=== PATIENT | female | born 1990 | race Caucasian/White ===

== ENCOUNTER 2025-03-04 14:33 | Emergency (ER) | payer OTHER, SELFPAY ==
--- OUTSIDE RECORDS SUMMARY | 2025-03-04 14:41 | XMS_ITS | Encounter Summary ---
Author Organization [facility] Address [address] [place] [address] Care Team Providers Care Business Coordinator Name Role Phone Quan Wade DO Primary Care Provider [phone] Reason for Referral * Imaging (Routine) - Closed Specialty Diagnoses / Procedures Referred By Farhat millan Referred To Contact RADIOLOGY Diagnoses Mass of left axilla Procedures US AXILLARY NON BREAST LT Quan Wade DO [address] [address] Phone: tel: fax: Referral ID Status Reason Start Date Expiration Date Visits Re quested Visits Authorized [id number] Closed 11/03/2024 12/04/2025 1 1 Reason for Visit * Reason Onset Date Comments Nodes 11/03/2024 Encounter Details Date Type Department Care Team (Late st Contact Info) Description 11/03/2024 [facility] Documentation [facility] [place], [place] [id number] Quan Wade DO [address] [address] Nodes Social History Tobacco Use Types Packs/Day Years Used Date Smoking Tobacco: Never Assessed Comments Unknown Sex and Gender Information Value Date Recorded Sex Assigned at Female 11/04/2024 11:33 AM CDT Legal Sex Female 9:43 AM CDT Gender Identity Not on file Sexual Orientation Not on file documented as of this encounter Progress Notes * Quan Wade DO - 11/03/2024 4:50 PM CDT Note completed for outpatient order placed to [facility] which is being followed outpatient. Ultrasound of left axillary region and mammogram to determine etiology of left axillary mass. Quan Wade DO Tie Carrier Cosigned by Tashi Bejarano MD at 11/21/2024 9:11 PM CDT documented in this encounter Plan of Treatment Not on file documented as of this encounter Results * CBC W/DIFF AUTOMATED (11/22/2024 3:29 PM CDT) WBC 8.13 4.5 - 11.0 x10'3/uL 11/22/2024 4:14 PM CDT [facility] RBC 4.88 4.20 - 5.40 x10'6/uL 11/22/2024 4:14 PM CDT [facility] HGB 15.1 12.0 - 16.0 G/DL 11/22/2024 4:14 PM CDT [facility] HCT 44.1 38.0 - 48.0 % 11/22/2024 4:14 PM CDT [facility] MCV 90.4 81.0 - 99.0 FL 11/22/2024 4:14 PM CDT [facility] MCH 30.9 27.0 - 31.0 PG 11/22/2024 4:14 PM CDT [facility] MCHC 34.2 32.0 - 36.0 G/DL 11/22/2024 4:14 PM CDT [facility] RDW 12.7 11.5 - 14.5 % 11/22/2024 4:14 PM CDT [facility] PLT 291 130 - 400 x10'3/uL 11/22/2024 4:14 PM CDT [facility] MPV 9.8 9.3 - 12.2 FL 11/22/2024 4:14 PM CDT [facility] DIFFERENTIAL TYPE AUTOMATED DIFFERENTIAL 11/22/2024 4:14 PM CDT [facility] NEUTROPHILS % 66.9 % 11/22/2024 4:14 PM CDT [facility] LYMPHOCYTES % 23.9 % 11/22/2024 4:14 PM CDT [facility] MONOCYTES % 6.5 % 11/22/2024 4:14 PM CDT [facility] EOSINOPHILS 1.2 % 11/22/2024 4:14 PM CDT [facility] BASOPHILS 1.0 % 11/22/2024 4:14 PM CDT [facility] IMMATURE GRANS % 0.5 % 11/23/19 4:14 PM CDT [facility] ABS. NEUTROPHILS 5.44 1.80 - 7.70 x10'3/uL 11/22/2024 4:14 PM CDT [facility] ABS. LYMPHOCYTES 1.94 1.00 - 4.80 x10'3/uL 11/22/2024 4:14 PM CDT [facility] ABS. MONOCYTES 0.53 0.24 - 0.86 x10'3/uL 11/22/2024 4:14 PM CDT [facility] ABS. EOSINOPHILS 0.10 0.04 - 0.36 x10'3/uL 11/22/2024 4:14 PM CDT [facility] ABS. BASOPHILS 0.08 0.01 - 0.08 x10'3/uL 11/22/2024 4:14 PM CDT [facility] ABS. IMMATURE GRANULOCYTES 0.04 0.00 - 0.49 x10'3/uL 11/22/2024 4:14 PM CDT [facility] 11/22/2024 3:29 PM CDT Quan Wade DO LABORATORY Final Result [facility] [address] [place] [address], [place] [phone] * US AXILLARY NON BREAST LT (11/22/2024 2:38 PM CDT) Anatomical Region Laterality Modality Extremity Ultrasound 11/22/2024 2:37 PM CDT Impressions 11/22/2024 2:39 PM CDT =====IMPRESSION:===== No mammographic evidence of malignancy.. Specifically no distinct abnormality in the left axilla, at level of possible abnormality.. If symptomatology persists, follow-up with surgical consultation. ASSESSMENT: ACR BI-RADS 1 - NEGATIVE Recommendation: 1: Routine Screening Bilateral COMMENTS: Ordered By: QUAN WADE Interpreted By: Adri Hackett, 11/22/2024 2:37 PM Narrative 11/22/2024 2:39 PM CDT [facility] [place] [address] EXAMINATION: Digital bilateral diagnostic mammogram with 3-D tomography. Left breast ultrasound [id number] EXAM DATE/TIME: 11/22/2024 1:03 PM REASON FOR EXAM: 2x2cm firm rubbery mass located in left axilla on distal aspect of tail of Elkins present for one month COMPARISON: Baseline exam TECHNIQUE: Digital diagnostic mammography of both breasts was performed in addition to 3-D Tomosynthesis technique. This study was read with the assistance of a computer-aided detection system.. Focused left breast ultrasound TISSUE DENSITY: There are scattered areas of fibroglandular density. Findings: No focal asymmetry, dominant mass lesion, area of skin thickening, or cluster of suspicious appearing calcifications in either breast to suggest malignancy.. Marker placed at level of palpable abnormality within the left axilla. No underlying abnormality on mammogram or same-day ultrasound. us Quan Wade DO ULTRASOUND Final Result * MG DIAG W ADELINE BILAT DIGI (11/22/2024 1:32 PM CDT) Anatomical Region Laterality Modality Breast Bilateral Mammography 11/22/2024 2:37 PM CDT Impressions 11/22/2024 2:39 PM CDT =====IMPRESSION:===== No mammographic evidence of malignancy.. Specifically no distinct abnormality in the left axilla, at level of possible abnormality.. If symptomatology persists, follow-up with surgical consultation. ASSESSMENT: ACR BI-RADS 1 - NEGATIVE Recommendation: 1: Routine Screening Bilateral COMMENTS: Ordered By: QUAN WADE Interpreted By: Adri Hackett, 11/22/2024 2:37 PM Narrative 11/22/2024 2:39 PM CDT [facility] [place] [address] EXAMINATION: Digital bilateral diagnostic mammogram with 3-D tomography. Left breast ultrasound [id number] EXAM DATE/TIME: 11/22/2024 1:03 PM REASON FOR EXAM: 2x2cm firm rubbery mass located in left axilla on distal aspect of tail of Elkins present for one month COMPARISON: Baseline exam TECHNIQUE: Digital diagnostic mammography of both breasts was performed in addition to 3-D Tomosynthesis technique. This study was read with the assistance of a computer-aided detection system.. Focused left breast ultrasound TISSUE DENSITY: There are scattered areas of fibroglandular density. Findings: No focal asymmetry, dominant mass lesion, area of skin thickening, or cluster of suspicious appearing calcifications in either breast to suggest malignancy.. Marker placed at level of palpable abnormality within the left axilla. No underlying abnormality on mammogram or same-day ultrasound. us Quan Wade DO MAMMO Final Result documented in this encounter Visit Diagnoses Diagnosis Mass of left axilla- Primary Axillary mass, left Axillary mass, left Mass of left axilla documented in this encounter Care Teams Business Coordinator Relationship Specialty Start Date End Date Quan Wade, [address] [address] PCP - General FAMILY PRACTICE 11/06/24 documented as of this encounter
--- OUTSIDE RECORDS SUMMARY | 2025-03-04 14:41 | XMS_ITS | Clinical Summary ---
Author Organization [facility] Address [address] [place] [address] Care Team Providers Care Exec. Creative Director Name Role Phone NickQuan lay Martha GARIBAY Primary Care Provider [phone] Social History Tobacco Use Types Packs/Day Years Used Date Smoking Tobacco: Never Assessed Comments Unknown Sex and Gender Information Value Date Recorded Sex Assigned at Female 11/04/2024 11:33 AM CDT Legal Sex Female 9:43 AM CDT Gender Identity Not on file Sexual Orientation Not on file Plan of Treatment Health Maintenance Due Date Last Done Comments Cervical Cancer Screening Pa p Smear (Age 30 to 64) Every 3 Years 1988 Annual Physical 1991 Hepatitis C 2006 Hepatitis B Vaccines (1 of 3 - 19+ 3-dose series) 2007 HPV Vaccines (1 - 3-dose SCD M series) 2015 Cervical Cancer Screening Pa p with HPV Testing (Age 30 to 64) Every 5 Years 2018 Cervical Cancer Screening with HPV 2018 COVID-19 Vaccine ( - 2023-2 5 season) 2024 DTaP, Tdap and Td Vaccines ( 2 - Td or Tdap) 03/12/2028 03/12/2018 Meningococcal B Vaccine Aged Out No l onger eligible based on patient's age to complete this topic Meningococcal Vaccine Aged Out No pavan zelalem eligible based on patient's age to complete this topic Pneumococcal Vaccine: Pediat rics (0 to 5 Years) and At-Risk Patients (6 to 49 Years) Aged Out No longer eligi ble based on patient's age to complete this topic RSV Immunizations Under 20 Months Aged Out No longer eligible based on patient's age to complete this topic Insurance Care Teams Exec. Creative Director Relationship Specialty Start Date End Date Quan Wade DO [address] [address] PCP - General FAMILY PRACTICE 11/06/24
--- OUTSIDE RECORDS SUMMARY | 2025-03-04 14:41 | XMS_ITS | Continuity of Care Document ---
Author Organization [employer] Address [address] [address] [place] [address] Phone Care Team Providers Care Direct Chill Caster Name Role Phone Settle Radha DELCID Unavailable Unavailable Allergies, Adverse Reactions, Alerts Substance Reaction Status Criticality No Known Allergies Active No Inform ation Medications Medication Instructions Dosage Effective Dates (start - stop) Status Comments Ortho Micronor 0.35 mg tablet take 1 tablet by oral route every day - Active breast pump AC/DC ANY; USE DIRECTED; DIAGNOSIS Z39.1 - Active triamcinolone acetonide 0.1 % topical cream apply sparingly to affect area 2 times every day in a thin layer for atopic dermatitis - Active Vitamin 27 mg iron-0.8 mg tablet take 1 tablet by oral route every day 1 tablet - No Longer Active Procedures Procedure Date Post Visit DELIVERY Global Urinalysis OB GLOBAL ROUTINE VENIPUNCTURE Global Urinalysis OB GLOBAL Global Urinalysis OB GLOBAL NON-STRESS TEST Global Urinalysis OB GLOBAL Global Urinalysis OB GLOBAL IMMUNIZATION ADMIN TDAP VACCINE >7 IM Global Urinalysis OB GLOBAL Global Urinalysis OB GLOBAL Global Urinalysis OB GLOBAL Global Urinalysis New OB Visit OFFICE/OUTPATIENT VISIT/TELEHEALTH, EST OFFICE/OUTPATIENT VISIT/TELEHEALTH, EST PREV VISIT, EST, AGE 18-39 OFFICE/OUTPATIENT VISIT/TELEHEALTH, EST PREV VISIT, EST, AGE 18-39 POSTOP FOLLOW-UP VISIT RPR VENTRAL DEON INIT, REDUC OB GLOBAL OFFICE/OUTPATIENT VISIT/TELEHEALTH, EST Delivering Physician For Vaginal Deliver y Care But Delivered By Another D r OB GLOBAL IMMUNIZATION ADMIN TDAP VACCINE >7 IM Global Urinalysis OB GLOBAL Global Urinalysis OB GLOBAL Global Urinalysis OB GLOBAL ROUTINE VENIPUNCTURE Global Urinalysis OB GLOBAL ROUTINE VENIPUNCTURE OFFICE CONSULTATION NON-STRESS TEST Global Urinalysis OB GLOBAL OB GLOBAL Global Urinalysis ROUTINE VENIPUNCTURE OB GLOBAL Global Urinalysis ROUTINE VENIPUNCTURE IMMUNIZATION ADMIN IIV4 VACC NO PRSV 0.5 ML IM Global Urinalysis ROUTINE VENIPUNCTURE OB GLOBAL OFFICE/OUTPATIENT/TELEHEALTH VISIT, NEW Advance Directives Directive Yes / No Effective Date File Name No Information Encounters Encounter Description Practice Location Reason(s) For Visit Diagnoses Date Provider Providers Copied on Encounter [facility], [address] [address], [place], [place], [address], [place] tel:[phone] [facility] Demond 204 check (chief complaint) Encounter for routine follow-upSki marisa lesion 3 Justin Garcia. [address], [address], [place], [address], [place]. tel:[phone] Referring Provider: Maricruz Clemente, [address], [place], [address] . tel:[phone] [facility], [address] [address], [place], [place], [address], [place] tel:[phone] [facility] Inpatient No Information 3 Justin Garcia. [address], [address], [place], [address], [place]. tel:[phone] Referring Provider: Radha Kelley, [address], [place], [address] . tel:[phone] [facility], [address] [address], [place], [place], [address], [place] tel:[phone] [facility] 204 (chief complaint) Abnormal antibody titerEncount er for supervision of other normal , third blzpbikiz12 weeks gestation of pregnancyGBS (group B Streptococcu s carrier), +RV culture, currently 3 Justin Garcia. [address], [address], [place], [address], [place]. tel:[phone] Referring Provider: Radha Kelley, [address], [place], [address] . tel:[phone] [facility], [address] [address], [place], [place], [address], [place] tel:[phone] [facility] [place] 203 (chief complaint) Encounter for supervision of other normal , third cqphgyqao35 weeks gestation of 3 Joshua Mcqueen. [address], [address], [place], [id number], [place]. tel:[phone] Referring Provider: Radha Kelley, [address], [place], [address] . tel:[phone] [facility], [address] [address], [place], [place], [address], [place] tel:[phone] [facility] [place] 203 (chief complaint) Encounter for supervision of other normal , third trimester 3 Dagmar Fonseca. [address], [address], [place], [address], [place]. tel:[phone] Referring Provider: Radha Kelley, [address], [place], [address] . tel:[phone] [facility], [address] [address], [place], [place], [address], [place] tel:[phone] [facility] Outpatient No Information 3 Justin Garcia. [address], [address], [place], [address], [place]. tel:[phone] Referring Provider: Radha Kelley, [address], [place], [address] . tel:[phone] [facility], [address] [address], [place], [place], [address], [place] tel:[phone] [facility] [place] 203 (chief complaint) Encounter for supervision of other normal , third weeks gestation of 3 Bryn Alcnatara. [address], [address], [place], [address], [place]. tel:[phone] Referring Provider: Radha Kelley, [address], [place], [address] . tel:[phone] [facility], [address] [address], [place], [place], [address], [place] tel:[phone] [facility] 204 (chief complaint) Encounter for supervision of other normal , third trimesterAbn ormal antibody titer28 weeks gestation of 3 Justin Garcia. [address], [address], [place], [address], [place]. tel:[phone] Referring Provider: Radha Kelley, [address], [place], [address] . tel:[phone] [facility], [address] [address], [place], [place], [address], [place] tel:[phone] [facility] 204 (chief complaint) Encounter for supervision of other normal , second bxmzorbhw01 weeks gestation of pregnancyAbn ormal antibody titer 3 Justin Garcia. [address], [address], [place], [address], [place]. tel:[phone] Referring Provider: Radha Kelley, [address], [place], [address] . tel:[phone] [facility], [address] [address], [place], [place], [address], [place] tel:[phone] [facility] 204 (chief complaint) Encounter for supervision of other normal , second btluuzlom06 weeks gestation of pregnancyAbn ormal antibody titerHistory of delivery, currently 3 Justin Garcia. [address], [address], [place], [address], [place]. tel:[phone] Referring Provider: Radha Kelley, [address], [place], [address] . tel:[phone] [facility], [address] [address], [place], [place], [address], [place] tel:[phone] [facility] [place] 204 (chief complaint) Encounter for supervision of other normal , second wxgzuhevo00 weeks gestation of pregnancyAbn ormal antibody titer 3 Justin Garcia. [address], [address], [place], [address], [place]. tel:[phone] Referring Provider: Radha Kelley, [address], [place], [address] . tel:[phone] [facility], [address] [address], [place], [place], [address], [place] tel:[phone] [facility] [place] 204 Obesity during 3 Justin Garcia. [address], [address], [place], [address], [place]. tel:[phone] [facility], [address] [address], [place], [place], [address], [place] tel:[phone] [facility] [place] 204 (chief complaint) Encounter for supervision of other normal , first weeks gestation of pregnancyObe sity during pregnancyPre vious sectionHisto ry of delivery, currently 2 Justin Garcia. [address], [address], [place], [address], [place]. tel:[phone] Referring Provider: Radha Kelley, [address], [place], [address] . tel:[phone] OFFICE/OUTPAT IENT VISIT/[facility], EST [facility], [address] [address], [place], [place], [address], [place] tel:[phone] [facility] [place] 204 amenorrhea (chief complaint) Amenorrhea 2 Justin Garcia. [address], [address], [place], [address], [place]. tel:[phone] Referring Provider: Radha Kelley, [address], [place], [address] . tel:[phone] [facility], [address] [address], [place], [place], [address], [place] tel:[phone] [facility] [place] , unspecified gestational age 2 Cris Poon. [address], [place], [address], [place]. tel:[phone] OFFICE/OUTPAT IENT VISIT/TE[facility]HEA [facility], EST [facility], [address] [address], [place], [place], [address], [place] tel:[phone] [facility] Vy Colon c/o (R) arm numbness and tingling (chief complaint) Bilateral carpal tunnel syndrome 2 Cris Poon. [address], [place], [address], [place]. tel:[phone] Referring Provider: Ayah Sabillon, [address], [place], [address]. tel:[phone] PREV VISIT, EST, AGE 18-39 [facility], [address] [address], [place], [place], [address], [place] tel:[phone] [facility] Colon [place] 203 annual exam (chief complaint) Encntr for patient intake coordinator exam (general) (routine) w/o abn findingsPers onal hx of contraceptio n 2 Korin Morillo. [address], [address], [place], [address], [place]. tel:[phone] Referring Provider: Bonita Portillo, [address], [place], [address]. tel:[phone] OFFICE/OUTPAT IENT VISIT/TELEHEA LTH, EST [facility], [address] [address], [place], [place], [address], [place] tel:[phone] [facility] Vy Colon c/o rash (chief complaint)c /o lump on upper back (chief complaint)c /o earache (chief complaint) Atopic dermatitis, mildEpiderma l inclusion cystEar pain, bilateral Oct- 2 Cris Poon. [address], [place], [address], [place]. tel:[phone] Referring Provider: Ayah Sabillon, [address], [place], [address]. tel:[phone] PREV VISIT, EST, AGE 18-39 [facility], [address] [address], [place], [place], [address], [place] tel:[phone] [facility] [place] 203 annual exam (chief complaint) Women's annual routine gynecologica l examinationE ncounter for surveillance of contraceptiv e pills 1 Cj Mesa. [address], [address], [place], [address], [place]. tel:[phone] Referring Provider: Bonita Portillo, [address], [place], [address]. tel:[phone] [facility], [address] [address], [place], [place], [address], [place] tel:[phone] [facility] Post-Op (chief complaint) Follow-up surgery care Oct-0 1 Ac Sin. [address], [address], [place], [address], [place]. tel:[phone] Referring Provider: Merrick Shen, [address], [place], [address]. tel:[phone] [facility], [address] [address], [place], [place], [address], [place] tel:[phone] [facility] OR No Information 1 Ac Sin. [address], [address], [place], [address], [place]. tel:[phone] Referring Provider: Merrick Shen, [address], [place], [address]. tel:[phone] [facility], [address] [address], [place], [place], [address], [place] tel:[phone] [facility] Pre-op testing 1 Cris Poon. [address], [place], [address], [place]. tel:[phone] [facility], [address] [address], [place], [place], [address], [place] tel:[phone] [facility] Dem[place] 203 check (chief complaint) Encounter for routine follow-upBir th control counseling 1 Cj Mesa. [address], [address], [place], [address], [place]. tel:[phone] Referring Provider: Bonita Portillo, [address], [place], [address]. tel:[phone] OFFICE/OUTPAT IENT VISIT/TELEHEA LT, EST [facility], [address] [address], [place], [place], [address], [place] tel:[phone] [facility] Ventral hernia (chief complaint) Ventral hernia without obstruction or gangreneMoth er currently breast-feedi ng 1 Ac Sin. [address], [address], [place], [address], [place]. tel:[phone] Referring Provider: Merrick Shen, [address], [place], [address]. tel:[phone] [facility], [address] [address], [place], [place], [address], [place] tel:[phone] [facility] Inpatient No Information 1 Korin Morillo. [address], [address], [place], [address], [place]. tel:[phone] Referring Provider: Bonita Portillo, [address], [place], [address]. tel:[phone] [facility], [address] [address], [place], [place], [address], [place] tel:[phone] [facility] Inpatient No Information 1 Cj Mesa. [address], [address], [place], [address], [place]. tel:[phone] Referring Provider: Bonita Portillo, [address] [place] [address] Road [address], [place], [address]. tel:[phone] [facility], [address] [address], [place], [place], [address], [place] tel:[phone] [facility] [place] 203 (chief complaint) 35 weeks gestation of 1 Justin Radha. [address], [address], [place], [address], [place]. tel:[phone] Referring Provider: Bonita Portillo, [address] [place] [address] Road [address], [place], [address]. tel:[phone] [facility], [address] [address], [place], [place], [address], [place] tel:[phone] [facility] [place] 203 (chief complaint) Supervision of high risk , third weeks gestation of 1 Cj Mesa. [address] [place] [address] Road, [address], [place], [address], [place]. tel:[phone] Referring Provider: Bonita Portillo, [address] [place] [address] Road [address], [place], [address]. tel:[phone] [facility], [address] [address], [place], [place], [address], [place] tel:[phone] [facility] [place] 203 (chief complaint) Encounter for supervision of other normal , third weeks gestation of pregnancyKid celeste stones 0 Cj Mesa. [address], [address], [place], [address], [place]. tel:[phone] Referring Provider: Bonita Portillo, [address], [place], [address]. tel:[phone] [facility], [address] [address], [place], [place], [address], [place] tel:[phone] [facility] [place] 203 (chief complaint) Supervision of high risk , third kexqldvdi02 weeks gestation of 0 Cj Mesa. [address], [address], [place], [address], [place]. tel:[phone] Referring Provider: Bonita Portillo, [address], [place], [address]. tel:[phone] [facility], [address] [address], [place], [place], [address], [place] tel:[phone] [facility] [place] 203 (chief complaint) Supervision of high risk , 2nd iltaptobh81 weeks gestation of pregnancyKid celeste stones 0 Cj Mesa. [address], [address], [place], [address], [place]. tel:[phone] Referring Provider: Bonita Portillo, [address], [place], [address]. tel:[phone] [facility], [address] [address], [place], [place], [address], [place] tel:[phone] [facility] [place] Kidney stones 0 Cris Poon. [address], [place], [address], [place]. tel:[phone] OFFICE CONSULTATION [facility], [address] [address], [place], [place], [address], [place] tel:[phone] [facility] umbilical hernia (chief complaint) Ventral hernia without obstruction or drdalwta00 weeks gestation of 0 Ac Nigelmeño. [address], [address], [place], [address], [place]. tel:[phone] Referring Provider: Bonita Portillo, [address], [place], [address]. tel:[phone] [facility], [address] [address], [place], [place], [address], [place] tel:[phone] [facility] Outpatient No Information 0 Bryn Alcantara. [address], [address], [place], [address], [place]. tel:[phone] Referring Provider: Bonita Portillo, [address], [place], [address]. tel:[phone] [facility], [address] [address], [place], [place], [address], [place] tel:[phone] [facility] [place] 203 (chief complaint) Supervision of high risk , 2nd dngvuzwri65 weeks gestation of 0 Cj Mesa. [address], [address], [place], [address], [place]. tel:[phone] Referring Provider: Bonita Portillo, [address], [place], [address]. tel:[phone] [facility], [address] [address], [place], [place], [address], [place] tel:[phone] [facility] Umbilical hernia without obstruction or gangrene 0 Cris Poon. [address] [place] [address] Rd [address], [place], [address], [place]. tel:[phone] [facility], [address] [address], [place], [place], [address], [place] tel:[phone] [facility] 203 (chief complaint) Supervision of high risk , 2nd bfegncfkm29 weeks gestation of Apr- 0 Cj Whittingtonjita. [address] [place] [address] Road, [address], [place], [address], [place]. tel:[phone] Referring Provider: Bonita Portillo, [facility] [address], [place], [address]. tel:[phone] [facility], [address] [address], [place], [place], [address], [place] tel:[phone] [facility] (chief complaint) Supervision of high risk , 2nd pwrlosfwn60 weeks gestation of Mar- 0 Nikhilveronica Bonita. [address] [place] [address] Road, [address], [place], [address], [place]. tel:[phone] Referring Provider: Bonita Portillo, [address] [place] [address] Road [address], [place], [address]. tel:[phone] [facility], [address] [address], [place], [place], [address], [place] tel:[phone] [facility] (chief complaint) Supervision of high risk , 2nd weeks gestation of Mar-0 0 Nikhilata Bonita. [address] [place] [address] Road, [address], [place], [address], [place]. tel:[phone] Referring Provider: Bonita Portillo, [facility] [address], [place], [address]. tel:[phone] OFFICE/OUTPAT IENT/TELEHEAL TH VISIT, [facility], [address] [address], [place], [place], [address], [place] tel:[phone] [facility] Telehealth [place] [facility] (chief complaint)e [facility] (chief complaint) Amenorrhea 0 Cris Poon. [address], [place], [address], [place]. tel:[phone] Referring Provider: Ayah Sabillon, [address], [place], [address]. tel:[phone] Family History Family Member Type Diagnosis Age At Onset Father Problem (finding) hypercholesterolemia Paternal grandmother Problem (finding) stroke Sister Problem (finding) asthma Maternal grandmother Problem (finding) Heart disease Paternal grandfather Problem (finding) alzheimer's dis ease Father Problem (finding) hypertension Immunizations Vaccine Date Status Comments Tdap administered Source: New Imm unization Record Tdap administered Source: New Imm unization Record Influenza Virus Vaccine, Preservative free administered Source: New Immuniza tion Record Payers Payer name Insurance type Covered democrat ID Authoriza tion(s) [employer] [id number] [employer] [id number] [employer] [id number] [employer] [id number] Social History Type Description Quantity Date Captured Comments Alcohol Use Details Unknown Caffeine Use Details Unknown Tobacco Use Status No Information Smoking Status No Information Sex Female Vital Signs Date / Time: Height Weight BMI Pulse Rate Blood Pressure Temperature Respiratory Rate Body Surface Area Head Circumference Head Circ. Percentile Wt./Anthony. Percentile BMI percentile Pulse Ox Inhaled Ox 3:30 PM 67.00 in 100.471 kg (221.50 lbs) 34.6 9 kg/m eter (2) 120/76 mm[Hg] Chief Complaint And Reason For Visit From encounter dated '02/04/2023 15:15'. check (chief complaint). Description: The patient has no feeding complications, nursing difficulties, breast problems, vaginal bleeding, urinary problems or bowel problems. A depression screening was completed. The patient has no history of domestic violence. The patient has resumed sexual activity and exercise. The patient has not resumed work. Reason For Referral Reason For Referral No Information Plan Of Treatment Date Type Action Status Referral Ordered: Dermatology (related to Skin lesion) ordered Referral Referred To: [address] [place] [address] [place], [phone] Ordered: Referrals: Dermatology. Location: [facility] ordered Referral Ordered: Fabiola Munroe MD -Obstetrics (related to History of delivery, currently ) ordered Referral Referred To: Fabiola Munroe MD [address] [facility]
[address] [place], [phone] Ordered: Referrals: Obstetrics. Fabiola Munroe MD ordered Referral Ordered: TRANSVAGINAL US, OBSTETRIC ordered Referral Referred To: Radha Anderson MD [address] [place], [phone] Ordered: Referrals: Obstetrics and Gynecology. Radha Anderson MD Evaluate and treat ordered Referral Ordered: Beau Willams MD -Physical Medicine and Rehabilitation (related to Bilateral carpal tunnel syndrome) ordered Referral Ordered: Isaak Murray MD -Orthopedic Surgery (related to Bilateral carpal tunnel syndrome) ordered Referral Referred To: Isaak Murray MD [address] [place], [id number] Ordered: Referrals: Orthopedic Surgery. Isaak Murray MD. Evaluate and treat ordered Referral Referred To: Beau Willams MD [address] [place], [phone] Ordered: Referrals: Physical Medicine and Rehabilitation. Beau Willams MD. Evaluate and treat ordered Referral Referred To: Merrick Shen MD [address] [place], [phone] Ordered: Referrals: Surgery. Merrick Shen MD. Evaluate and treat ordered Referral Ordered: Guy Espana MD -Urology (related to Kidney stones) ordered Referral Referred To: [address] [place], [phone] Ordered: Ultrasound, Retroperitoneal (Kidney And Bladder) Limited ordered Referral Referred To: Guy Espana MD [address] [place], [phone] Ordered: Referrals: Urology. Guy Espana MD. Evaluate and treat ordered Referral Ordered: Merrick Shen MD -Surgery (related to Umbilical hernia without obstruction or gangrene) ordered Referral Referred To: Merrick Shen MD [address] [place], [phone] Ordered: Referrals: Surgery. Merrick Shen MD. Evaluate and treat ordered Referral Referred To: [address] [place], [address] [phone] Ordered: OB US, DETAILED, SNGL FETUS ordered Referral Ordered: Bonita Corona MD [facility] -Obstetrics (related to Amenorrhea) ordered Referral Referred To: Bonita Corona MD [facility] [address] [place], [address] [phone] Ordered: Referrals: . Bonita Corona MD [facility]. Evaluate and treat ordered History Of Present Illness Encounter Date Complaint History Of Prese nt Illness check The patient has no feeding complications, nursing difficulties, breast problems, vaginal bleeding, urinary problems or bowel problems. A depression screening was completed. The patient has no history of domestic violence. The patient has resumed sexual activity and exercise. The patient has not resumed work. LMP was 04/17/20 22. The patient had 5 previous pregnancies. LMP was 04/17/20 22. The patient had 5 previous pregnancies. LMP was 04/17/20 22. The patient had 5 previous pregnancies. LMP was 09/28/20 22. The patient had 5 previous pregnancies. LMP was 04/17/20. The patient had 5 previous pregnancies. amenorrhea Last menstrual p eriod was on 04/17/2022. The age of menarche onset was 11. Patient is . : 6. Parity: Term: 3. Pre-Term: 1. : 1. Livin. c/o (R) arm numbness and tinglin g Was staying in parent's guestroom after driving long distance, she woke up with numbness in the right hand affecting all fingers, it did not get better as soon as she got up. It took some time to resolve and later in the day she would have repeated brief episodes of numbness/tingling. This problem has continued since. It was noticed while driving home. At this point she has been experiencing numbness just in the median nerve distribution. She occ has had numbness int he left hand also. annual exam Currently pregna nt: no. : 5. Parity: Term: 3. Pre-Term: 1. spontaneous: 1. Livin. The patient states she uses oral contraceptive for control. Her menses is regular. Negative for: breast self exam. Pertinent negatives include abnormal vaginal bleeding. She does not take multivitamins. She has not been exposed to passive smoke. She has not been exposed to passive vaping. She does drink alcohol. Additional information: pt presents for annual exam. Needing pap. Wanting to continue OCP . c/o rash itchy, to extens or surfaces elbows and knees x 6 mos, and ankles too sometimes. has been applying lotion which seems to help initially, not much benefit from cortisone cream, dad has similar rash and TAC helps it. c/o lump on upper back lump on t he mid upper back, it does not hurt, except once when she tried squeezing it. c/o earache x 2 years, can a ffect either ear, happens when she lies on the one side or the other, the side she lies on is sore when she wakes up and it can also be sore and cause her to wake up and rollover. If she just sleeps on the back it does not hurt. No hearing trouble, no dizziness, no discharge from the ear. Pain lasts about 30 min when she wakes up in the am, she never takes anything for it. annual exam Currently pregna nt: no. : 5. Parity: Term: 3. Pre-Term: 1. spontaneous: 1. Livin. The patient states she uses oral contraceptive for control. Negative for: breast discharge, breast lump(s) and breast pain. Positive for: breast self exam. Pertinent negatives include abnormal bleeding (hematology), abnormal vaginal bleeding, anxiety, decreased libido, depression, difficulty falling sleep, dyspareunia, history of infertility, nocturia, sexual dysfunction, sleep disturbances, urinary incontinence, urinary urgency, vaginal discharge and vaginal itching. The patient does not use tobacco. She has not been exposed to passive smoke. She has not been exposed to passive vaping. She does drink alcohol. Additional information: 30-year-old white female 5 para 3-1-1-4 presented for annual checkup denied any problem patient had a Pap smear done on March 28, 2020 currently breast-feeding on minipill. Patient would be trying to get once she finishes breast-feeding. Post-Op The status of th e patient has improved. The patient reports pain. The pain scale is 0/10. The patient is not using pain medication. The patient reports no complications with the wound. The patient's activity level is back to pre-operative level. There are no indwelling devices. There are no associated symptoms. Pertinent negatives include abdominal pain, anorexia, calf tenderness, chest pain, chills, constipation, cough, diarrhea, dysphagia, dyspnea, fever, hematoma, hoarseness, limping, nausea, pleuritic pain, referred pain, swelling, urinary difficulty, vomiting and weight loss. Additional information: Patient is status post primary repair of a reducible ventral hernia on 10/09/2020. check The patient has no feeding complications, nursing difficulties, breast problems, vaginal bleeding, urinary problems or bowel problems. The patient has no feeding complications, nursing difficulties, breast problems, vaginal bleeding, urinary problems or bowel problems. A depression screening was completed. The patient has no history of domestic violence or gestational diabetes. The patient has not resumed sexual activity, work or exercise. The patient has not resumed sexual activity, work or exercise. The patient has no section incisional drainage, section incisional pain or episiotomy/laceration pain. The patient has no section incisional drainage, section incisional pain or episiotomy/laceration pain. Additional Information: Patient status post vaginal delivery 6 weeks ago is here for checkup denied any problems bleeding has stopped patient would like to do Micronor for control. Discussed delivery patient delivered at 35-1/2 weeks will require progesterone injections next . Ventral hernia Duration: 5 Year s. Severity: moderate. The problem is worse. It occurs constantly., periumbilical There is radiation to lower abdomen and epigastric. The patient describes it as aching. Context includes lifting heavy weight and physical activity. Identified risk factors include heavy lifting, multiple pregnancies, overweight, and previous abdominal surgery. Symptom is aggravated by lifting weight. Relieving factors include lying down. There are no associated symptoms. Pertinent negatives include abdominal distention, anorexia, back pain, bloating, blood in stool, constipation, cough, diaphoresis, diarrhea, dizziness, dyspnea, epigastric pain, eructation, fatigue, fever, flank pain, flatulence, heartburn, hematuria, jaundice, lightheadedness, menstruation, milk/dairy intolerance, myalgia, nausea, post prandial fullness, reflux, scrotal swelling, vomiting, weight gain and weight loss. Additional information: She is in the office today to schedule surgery.. LMP was 12/12/19 20. Severity: high risk. The patient had 4 previous pregnancies. LMP was 12/12/19 20. Severity: high risk. The patient had 4 previous pregnancies. Additional information: Pt doing well. LMP was 05 20. Severity: high risk. The patient had 4 previous pregnancies. LMP was 12/12/19 20. Severity: high risk. The patient had 4 previous pregnancies. Additional information: Pt doing well without any issues. LMP was 12/12/19 20. Severity: high risk. The patient had 4 previous pregnancies. Additional information: Pt doing well, still having back pain. umbilical hernia Duration: 5 Yea rs. Severity: moderate. The problem is worse. It occurs constantly., periumbilical There is radiation to lower abdomen and epigastric. The patient describes it as aching. Context includes lifting heavy weight and physical activity. Identified risk factors include heavy lifting, multiple pregnancies, and previous abdominal surgery. Symptom is aggravated by lifting weight. Relieving factors include lying down. There are no associated symptoms. Pertinent negatives include abdominal distention, anorexia, back pain, bloating, blood in stool, constipation, cough, diaphoresis, diarrhea, dizziness, dyspnea, epigastric pain, eructation, fatigue, fever, flank pain, flatulence, heartburn, hematuria, jaundice, lightheadedness, menstruation, milk/dairy intolerance, myalgia, nausea, post prandial fullness, reflux, scrotal swelling, vomiting, weight gain and weight loss. Additional information: She has had a tender bulge above her belly button since her first . She is currently and due in Aug 2020.. LMP was 12/12/19 20. Severity: high risk. The patient had 4 previous pregnancies. Associated symptoms include pelvic pain, urinary difficulty. LMP was 12/12/19 20. Severity: high risk. The patient had 4 previous pregnancies. Additional information: Pt doing well, having some back pain. LMP was 12/12/19 20. Severity: high risk. The client had 4 previous pregnancies. Additional information: Pt doing well without any issues. AFP drawn today. LMP was 12/12/19 20. LMP date is approximate. LMP date is unknown. Client was not taking control pills at or around the time of her LMP. Severity: high risk. Context: confirmed by lab test on 02/10/2020. Lab: [facility]. The client had 4 previous pregnancies. Symptoms were relieved by antacids. Associated symptoms include breast tenderness, fatigue, nausea. Pertinent negatives include anorexia, bleeding, constipation, edema, fever, headache, heartburn, irritability, pelvic pain, spotting, urinary difficulty, vaginal discharge, vomiting. Additional information: Transfer pt from [facility], 5th with history of complicated deliveries. History of anti little c. Telehealth with consent establish care patient has no c oncerns LMP December 11. she is taking pnv and no alcohol consumption. Kids are 5,3, 19 mos Functional Status Date Functional Assessmen t No Information Instructions Date Instruction Additional Infor mation R>>Luse wrist splint s at nightrefer for ncs emgrefer to Dr Parks Related to Bilateral carpal tunnel syndrome consider ENT referra l if problem becomes increasingly bothersome Related to Ear pain, bilateral refer to Dr. Shen. Related to Epidermal inclusion cyst basis of treatment i s moisturizers - eucerin, aquaphor and cetaphil - generics ok too, preferably from a tub, not a pump bottletriamcinolone cream apply sparingly, up to 2 times per day when area if inflamed and itchy, Related to Atopic dermatitis, mild circumcision depression postterm counseling TOLAC/ counseling anesthesia / analgesia plans toxoplasmosis precau tions (cats / raw meat) travel indications for ultrasound nutrition and weight gain counseling, special diet sexual activity exercise anticipated course of c are Benefits of Pamphl et (WB) risk factors identif ied by history HIV and other routine t ests Breast Changes during (WB) Discuss Flu vaccine and T-Dap Va ccine abnormal lab values signs and symptoms of la bor Screening for Aneuploidy Avoidance of hot tubs or saunas Dental care domestic violence childbirth classes / hospital fa cilities seat belt use influenza vaccine use of any medicatio ns (including supplements, vitamins, herbs, OTC drugs) use of illicit / recreational dr marshall Tobacco & Alcohol (ask/advise/assess/assist and arrange) environmental / work hazards & T eratogens Speak Up Pamphlet sk in to skin and (WB) domestic violence selecting a care provide r family medical leave or disabili ty forms smoking counseling influenza vaccine signs and symptoms o f -induced hypertension breast or formula feeding labor signs movement monitoring Encourage breast fee ding support group (WB) Give Nurturing Necessities Info (WB) If indicated discuss contraindications for (WB) Importance of Exclus tere for the first 6 months (WB) By week 31 Review Fe eding Solid Foods to your Baby (WB) Contact [facility] using number on the form given (WB) Encourage Childbirth & Breastfeeing Classes (WB) Non-Pharmalogical pa in relief for labor (WB) Hunger signs/The first 6 months (WB) Importance of 24 zara r baby rooming in (WB) know how Pamphlet (WB) Depression Screening (when indic ated) family pl anning / tubal sterilization domestic violence smoking counseling education (n ewborn screening, jaundice, SIDS, car seat) refer to OB Related to Ameno rrhea Assessments Type Assessment Date assessment Encounter for routine follow-up assessment Skin lesion Patient Care Teams Name Effective Dates (start - stop) Status Members No Information
--- NOTE | 2025-03-04 14:42 | ED_ITS ---
HPI - URI/Sore Throat General Chief Complaint: Upper Respiratory Infection Stated Complaint: sore throat/congestion Time Seen by Provider: 03/04/25 14:59 History of Present Illness HPI Narrative: 34 y/o female presented for c/o sore throat. Onset 4 days. Started with hoarse voice, right ear pain, nasal congestion and headache since onset. Taking Motrin. Denies n/v/d/f/c. Related Data Home Medications ?Medication ?Instructions ?Recorded ?Confirmed ?Last Taken ?Type norethindrone (contraceptive) 0.35 mg 03/04/25 Unknown History mg tablet Allergies Allergy/AdvReac Type Severity Reaction Status Date / Time No Known Allergies Allergy Verified 03/04/25 14:49 Review of Systems Review of Systems: CONSTITUTIONAL: Denies body aches, fever, chills, or sweats. EYES: Denies visual changes, redness, or discharge. ENT: reports sore throat, rhinorrhea, congestion, otalgia. CARDIOVASCULAR: Denies chest pain, palpitations, or edema. RESPIRATORY: Denies dyspnea. GASTROINTESTINAL: Denies abdominal pain, nausea, vomiting, or diarrhea. SKIN: Denies rash NEUROLOGIC: reports headache Exam Narrative: GENERAL: mildly Ill-appearing, no acute distress. EYES: conjunctivae clear ENT: Mucous membranes moist. Left TM pearly frost with normal light reflex; right TM erythematous, bulging and intact with purulent effusion; canal not erythematous, no drainage no tragal tenderness. Oropharynx erythematous without lesions. Tonsils enlarged and without exudate. No drooling, no hoarseness, no trismus, uvula midline. No tripod positioning, hot potato voice, or soft palate swelling. NECK: Supple. No lymphadenopathy CHEST: Clear to auscultation, breath sounds equal. No respiratory distress, speaks in full sentences. HEART: Regular rate and rhythm. No murmur heard. SKIN: Warm, dry, no rash. NEURO: Alert and oriented x3. Course Course Emergency Course: Patient is aware of diagnosis, understands and agrees to treatment plan. Anticipatory guidance given. Patient agrees to follow-up as directed and is aware of reasons to seek care at the emergency department. Portions of this record may have been created with voice recognition software Level of Care: Express Care Visit MDM - URI/Sore Throat MDM Narrative Medical decision making narrative: neg strep result reviewed with pt. discussed physical exam findings c/w right AOM, shared decision making pt declines viral testing. Rx augmentin. Advise supportive treatments. Patient is appropriate for outpatient treatment and follow-up. Differential Diagnosis Differential diagnosis: Likely upper respiratory infection, viral infection and pharyngitis Discharge Plan Discharge Clinical Impression: Otitis media, Upper respiratory infection Patient Disposition: Home Condition: Stable Instructions: Antibiotic Form, Ear Infection (ED) Additional Instructions: Rapid strep swab was negative today if symptoms are due to a viral illness, it is not treated with antibiotics. Viral symptoms can be present for up to 10-14 days. Recommendations: Flonase spray and Zyrtec for sinus congestion Cough syrup may cause drowsiness; avoid driving or take it at night time. Tylenol every 8 hours as needed for pain/fever Soft foods, cool liquids, warm tea. Gargle with warm saltwater twice a day. Chloraseptic spray and throat lozenges. Rest and stay hydrated. --Follow up with your PCP --Go to the ER immediately if you cannot swallow your saliva, trouble breathi ng/wheezing, throat swelling, pain is persistent and severe Patient Language: Malawian Prescriptions: New amoxicillin-pot clavulanate 875-125 mg tablet 1 tablet PO Q12H 7 Days Qty: 14 0RF No Action norethindrone (contraceptive) 0.35 mg tablet Follow-up/Referrals: Pat-Emmanuel,Christina [Other] Time of Disposition: 15:13
[2025-03-04 14:51] VITALS: BP 117/75; PULSE 71; RESP 20; TEMP 36.3; O2SAT 100
[2025-03-04 15:04] LABS: EDSTREPNEGPOS1 Negative (Negative)
== END 2025-03-04 15:19 | disposition home or self-care (01) ==
PROVIDERS: Emergency Provider Nurse Practitioner Family
DX: H66.91 Otitis media, unspecified, right ear (principal); J06.9 Acute upper respiratory infection, unspecified
CPT/HCPCS: 87081; 87880; 99203; G0463